=== PATIENT | female | born 1975 | race Caucasian/White ===

== ENCOUNTER 2019-01-25 21:29 | Emergency (ER) | payer BC ==
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
[2019-01-25 23:59] LABS: ABS Basophils 0 10^3/ul (0-0.2); ABS Eosinophils 0.1 10^3/ul (0-0.6); ABS Lymphocytes 1.8 10^3/ul (1.0-4.8); ABS Monocytes 0.6 10^3/ul (0-0.8); ABS Neutrophils 5.3 10^3/ul (1.5-7.7); ABS Nucleated RBC 0 10^3/ul; Eosinophil % 1.6 %; Hematocrit 37 % (35-47); Hemoglobin 12.4 g/dl (12.0-16.0); Lymphocyte % 22.8 %; Mean Corpuscular HGB Conc 33 g/dl (31-36); Mean Corpuscular Hemoglobin 29 pg (27-31); Mean Corpuscular Volume 87 fL (80-97); Mean Platelet Volume 7.9 fL (7.4-10.4); Nucleated Red Blood Cells % 0; Platelet Count 231 10^3/ul (150-450); Red Cell Distribution Width 14 % (10.5-15); White Blood Count 7.8 10^3/ul (3.5-10.8)
[2019-01-26 00:13] LABS: Albumin 3.9 g/dL (3.2-5.2); Albumin/Globulin Ratio 1.6 (1-3); BUN/Creatinine Ratio 18.6 (8-20); Calcium 9.4 mg/dL (8.6-10.3); EGFR African American 133.4 (>60); EGFR Non-African American 110.2 (>60); Globulin 2.4 g/dL (2-4); Potassium 4.1 mmol/L (3.5-5.0); Total Bilirubin 0.3 mg/dL (0.2-1.0); Total Protein 6.3 g/dL (6.4-8.9)
[2019-01-26 00:18] LABS: Influenza A Molecular NEGATIVE (Negative); Influenza B Molecular NEGATIVE (Negative)
[2019-01-26 01:06] VITALS: BP 116/77
== END 2019-01-26 01:08 | disposition home or self-care (01) ==
LOC: ED 21:29
DX: J20.9 Acute bronchitis, unspecified (principal); Z88.2 Allergy status to sulfonamides; Z88.0 Allergy status to penicillin
CPT/HCPCS: 36415; 71046; 80053; 83605; 85025; 99283

== ENCOUNTER 2019-10-28 22:22 | Emergency (ER) | payer BC ==
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
[2019-10-28] MEDS ORDERED: Ketorolac INJ* 30 MG/ML 1 ML VIAL IV PUSH ONE (23:11)
[2019-10-28] MEDS ORDERED: Morphine 4 MG/ML VIAL (1 ml) 4 MG/ML VIAL IV ONE (23:11)
[2019-10-28] MEDS ORDERED: Ondansetron INJ* 2 MG/ML VIAL IV ONE (23:11)
[2019-10-28] MEDS ORDERED: NS 0.9% 1000 ML** 2,000 ML IV ONE (23:11)
[2019-10-28] MEDS ORDERED: Morphine 4 MG/ML VIAL (1 ml) 4 MG/ML VIAL IV PRN (23:11)
[2019-10-28 23:50] LABS: ABS Lymphocytes 1.4 10^3/ul (1.0-4.8); ABS Monocytes 0.7 10^3/ul (0-0.8); ABS Neutrophils 7.3 10^3/ul (1.5-7.7); Eosinophil % 0.5 %; Hematocrit 37 % (35-47); Hemoglobin 12.5 g/dL (12.0-16.0); Lymphocyte % 14.5 %; Mean Corpuscular HGB Conc 34 g/dL (31-36); Mean Corpuscular Hemoglobin 29 pg (27-31); Mean Corpuscular Volume 87 fL (80-97); Mean Platelet Volume 8.2 fL (7.4-10.4); Platelet Count 210 10^3/uL (150-450); Red Blood Count 4.24 10^6 /uL (3.70-4.87); Red Cell Distribution Width 13 % (10-15); White Blood Count 9.5 10^3/uL (3.5-10.8)
[2019-10-28 23:51] LABS: Urine Appearance Clear; Urine Bilirubin Negative (Negative); Urine Blood Negative (Negative); Urine Color Colorless; Urine Glucose Negative (Negative); Urine Ketones Negative (Negative); Urine Nitrite Negative (Negative); Urine Protein Negative (Negative); Urine Specific Gravity 1.002 (1.010-1.030); Urine Urobilinogen Negative (Negative)
[2019-10-29 00:09] LABS: ALT 16 U/L (7-52); AST 17 U/L (13-39); Albumin/Globulin Ratio 1.8 (1-3); Alkaline Phosphatase 58 U/L (34-104); Anion Gap 6 mmol/L (2-11); BUN/Creatinine Ratio 11.8 (8-20); Blood Urea Nitrogen 8 mg/dL (6-24); C Reactive Protein 75.79 mg/L (<8.01); CO2 Carbon Dioxide 25 mmol/L (22-32); Calcium 8.9 mg/dL (8.6-10.3); Chloride 106 mmol/L (101-111); EGFR African American 112.7 (>60); EGFR Non-African American 93.2 (>60); Globulin 2.2 g/dL (2-4); Glucose 106 mg/dL (70-100); Potassium 3.7 mmol/L (3.5-5.0); Sodium 137 mmol/L (135-145); Total Protein 6.2 g/dL (6.4-8.9)
[2019-10-29 00:15] LABS: HCG Pregnancy < 0.60 mIU/mL
[2019-10-29] MEDS ORDERED: Iohexol 300* (CONTRAST) 10 ML SDV IV ONE (00:41)
[2019-10-29] MEDS ORDERED: Ciprofloxacin TAB* 500 MG PO ONE (02:45)
[2019-10-29] MEDS ORDERED: metroNIDAZOLE TAB* 250 MG PO ONE (02:46)
[2019-10-29 03:27] VITALS: BP 124/76
--- OUTSIDE RECORDS SUMMARY | 2019-11-01 15:21 | XMS REPORT | Summary of Care ---
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 0 Active ALLERGY) 10 MG Oral Cap Ibuprofen 200 MG Oral Take 600 mg by 0 Active CapIndications: mouth NEEDED. Osteoarthritis Indications: Joint Damage causing Pain and Loss of Function documented as of this encounter (statuses as of 09/19/2019) Active Problems Problem Noted Date Post concussive syndrome 09/19/2019 Primary osteoarthritis of both knees 07/12/2019 Primary osteoarthritis of left knee 06/28/2019 Primary osteoarthritis of right knee 06/28/2019 documented as of this encounter (statuses as of 09/19/2019) Social History Tobacco Use Types Packs/Day Years Used Date Never Smoker 0 Smokeless Tobacco: Never Used Alcohol Use Drinks/Week oz/Week Comments Yes occassionaly Sex Assigned at Date Recorded Not on file Job Start Date Occupation Industry Not on file Not on file Not on file Travel History Travel Start Travel End No recent travel history available. documented as of this encounter Last Filed Vital Signs Vital Sign Reading Time Taken Comments Blood Pressure 124/76 09/19/2019 4:19 PM EDT Pulse 77 09/19/2019 4:19 PM EDT Temperature 36.6 09/19/2019 4:19 PM EDT C (97.8 F) Respiratory Rate - - Oxygen Saturation 98% 09/19/2019 4:19 PM EDT Inhaled Oxygen Concentration - - Weight 78.5 kg (173 lb) 09/19/2019 4:19 PM EDT Height 172.7 cm (5' 8") 09/19/2019 4:19 PM EDT Body Mass Index 26.3 09/19/2019 4:19 PM EDT documented in this encounter Patient Instructions Patient InstructionsNoCalista rose NP - 09/19/2019 4:00 PM EDTGet fasting blood work tomorrow morning. EKG done today. Referral to cardiology - schedule this when you leave today. Record release for obgyn records (pap and mammo). If you have any concerning symptoms such as squeezing, pressure or pain in your chest; discomfort orpain in your back, neck, jaw, stomach, or arm; shortness of breath; nausea or vomiting; lightheadedness or a sudden cold sweat - please go immediately to the emergency room. Follow up depending on results of testing. documented in this encounter Progress Notes Calista Wise NP - 09/19/2019 4:00 PM EDT PATIENT: Lisset Wong : 1975 DATE OF SERVICE: 09/19/2019 CHIEF COMPLAINT: Chief Complaint Patient presents with Physical pt presents in office for CPE as well as establish care with Calista Subjective HISTORY OF PRESENT ILLNESS: Lisset Wong is a 43-y.o. female. HPI Patient is here for physical exam. Current concerns: Needs to establish with primary. Pressure in chest on and off for 2 weeks.Sometimes also in back. Having increased stress at her joband thinks maybe anxiety, having trouble sleeping. Mom and sister both have heart and anxiety hx around same age or younger. Palpations - several times a week, lasting 2-3 hours when she gets them. At least every other day. Pressure is intermittent, intense when it happens, once every other week, bad this weekend. Mild shortness of breath but relieved when sitting still. No diaphoresis. Wakingup sweaty at night though, not when awake. No neck, jaw, shoulder or arm back. Back pain between shoulder blades. No cough. Anxiety comes after the symptoms start. Pap (21-65): Goes to obgyn, last pap within last year, normal. Mammogram (40-75): Was doing every 6 months to follow a cyst and then was told not needed for another 2 years. Due next year. Does through obgyn. Family or personal history of breast or ovarian cancer: No Eye Exam: years - wears contacts. Dental Exam: one year ago, no dental problems Specialists: obgyn - [facility]. Ortho for knees - Dr. Graf. Had 3 concussions in 2012 - has postconcussive syndrome, sometimes trouble with memory. Diet: eat whatever, avoids wheat (has sensitivity). 24 Hour Diet Recall: Breakfast: Eggwhite and avocado on toast, coffee with cream, no sugar Lunch: Bowl of beans and green soup, water Dinner: Chicken and squash, water Snacks: No snack - more on weekends. 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 Past Medical History: Diagnosis Date Breast cyst 5mm cyst in R breast on U/S in 04/07 Depression 1993 dificulty with SSRIs Osteoarthritis of both knees Family History Problem Relation Age of Onset Hypertension Mother Cancer Father skin lesions removed Breast Cancer Maternal Grandmother Heart Maternal Grandmother 60 pacemaker Anesth Problems No family history Arthritis No family history Clotting Disorder No family history Diabetes No family history Heart Disease No family history Kidney Disease No family history Thyroid Disease No family history Current Outpatient Medications Medication Sig Cetirizine HCl (ZYRTEC ALLERGY) 10 MG Oral Cap Take by mouth. Ibuprofen 200 MG Oral Cap Take 600 mg by mouth NEEDED. Indications: Joint Damage causing Pain and Loss of Function No current facility-administered medications for this visit. Allergies Allergen Reactions Pcn-200 Anaphylaxis Sulfa Drugs Cross Reactors Dermatologic Reaction Social History Socioeconomic History Marital status: Single Spouse name: Not on file Number of children: Not on file Years of education: Not on file Highest education level: Not on file Occupational History Not on file Social Needs Financial resource strain: Not on file Food insecurity: Worry: Not on file Inability: Not on file Transportation needs: Medical: Not on file Non-medical: Not on file Tobacco Use Smoking status: Never Smoker Smokeless tobacco: Never Used Substance and Sexual Activity Alcohol use: Yes Comment: occassionaly Drug use: No Sexual activity: Yes Partners: Male control/protection: I.U.D. Lifestyle Physical activity: Days per week: Not on file Minutes per session: Not on file Stress: Not on file Relationships Social connections: Talks on phone: Not on file Gets together: Not on file Attends taoist service: Not on file Active member of club or organization: Not on file Attends meetings of clubs or organizations: Not on file Relationship status: Not on file Intimate partner violence: Fear of current or ex partner: Not on file Emotionally abused: Not on file Physically abused: Not on file Forced sexual activity: Not on file Other Topics Concern Not on file Social History Narrative Lives with 2 year old son. Works in [employer], lives in [place]. 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 Over the last 2 weeks, have you been feeling down, depressed, anxious, or hopeless?: 1 Over the past 2 weeks, have you felt little interest or pleasure in doing things ?: 0 REVIEW OF SYSTEMS: Review of Systems Constitutional: Positive for malaise/fatigue. Negative for chills and fever. HENT: Negative for congestion, sinus pain and sore throat. Respiratory: Positive for shortness of breath (see hpi). Negative for cough and wheezing. Cardiovascular: Positive for chest pain and palpitations. Negative for leg swelling. Gastrointestinal: Negative for abdominal pain, blood in stool, constipation, diarrhea, nausea and vomiting. Genitourinary: Negative for dysuria, frequency and urgency. Musculoskeletal: Positive for back pain (see hpi) and joint pain (knees). Negative for myalgias. Neurological: Positive for headaches (frontal). Negative for dizziness, tingling and sensory change. Psychiatric/Behavioral: Negative for depression. The patient is nervous/anxious and has insomnia. Objective PHYSICAL EXAM: VITALS: BP 124/76 (BP Location: Left arm, Patient Position: Sitting) | Pulse 77 | Temp 97.8 F(36.6 C) (Tympanic) | Ht 5' 8" (1.727 m) | Wt 173 lb (78.5 kg) | SpO2 98% | BMI 26.30 kg/m Body mass index is 26.3 kg/m. Physical Exam Vitals signs and nursing note reviewed. Constitutional: Appearance: Normal appearance. She is well-developed. HENT: Head: Normocephalic and atraumatic. Right Ear: Hearing, tympanic membrane, ear canal and external ear normal. Left Ear: Hearing, tympanic membrane, ear canal and external ear normal. Nose: Nose normal. Mouth/Throat: Lips: [place]. Mouth: Mucous membranes are moist. Pharynx: Oropharynx is clear. Uvula midline. Eyes: General: Lids are normal. Vision grossly intact. Gaze aligned appropriately. Extraocular Movements: Extraocular movements intact. Conjunctiva/sclera: Conjunctivae normal. Pupils: Pupils are equal, round, and reactive to light. Neck: Musculoskeletal: Normal range of motion and neck supple. Thyroid: No thyroid mass or thyromegaly. Vascular: No carotid bruit. Trachea: Trachea normal. Cardiovascular: Rate and Rhythm: Normal rate and regular rhythm. Frequent extrasystoles are present. Pulses: Normal pulses. Heart sounds: Normal heart sounds. No murmur. No friction rub. No gallop. Pulmonary: Effort: Pulmonary effort is normal. No respiratory distress. Breath sounds: Normal breath sounds. Abdominal: General: Abdomen is flat. Bowel sounds are normal. Palpations: Abdomen is soft. There is no hepatomegaly or splenomegaly. Tenderness: There is no tenderness. There is no right CVA tenderness or left CVA tenderness. Musculoskeletal: Normal range of motion. Right lower leg: No edema. Left lower leg: No edema. Lymphadenopathy: Head: Right side of head: No submental, submandibular, tonsillar, preauricular or posterior auricular adenopathy. Left side of head: No submental, submandibular, tonsillar, preauricular or posterior auricular adenopathy. Cervical: No cervical adenopathy. Upper Body: Right upper body: No supraclavicular adenopathy. Left upper body: No supraclavicular adenopathy. Skin: General: Skin is warm and dry. Neurological: General: No focal deficit present. Mental Status: She is alert and oriented to person, place, and time. Cranial Nerves: Cranial nerves are intact. Sensory: Sensation is intact. Deep Tendon Reflexes: Reflexes are normal and symmetric. Psychiatric: Attention and Perception: Attention and perception normal. Mood and Affect: Mood and affect normal. Speech: Speech normal. Behavior: Behavior normal. Behavior is cooperative. ASSESSMENT / IMPRESSION: ICD-9-CM ICD-10-CM 1. Physical exam V70.9 Z00.00 2. Elevated TSH 794.5 R79.89 THYROID STIMULATING HORMONE FREE T4 T3, FREE 3. Screening for lipid disorders V77.91 Z13.220 LIPID PROFILE 4. Screening for diabetes mellitus V77.1 Z13.1 COMPREHENSIVE METABOLIC PANEL 5. Palpitations 785.1 R00.2 THYROID STIMULATING HORMONE HOLTER MONITOR, GLOBAL (INCLUDES NURSES' ASSOCIATION COUNSELOR, VISUAL SCAN & INTERP) AMBULATORY 12 LEAD EKG (GLOBAL) CBC WITH DIFFERENTIAL FREE T4 T3, FREE 6. Encounter to establish care V65.8 Z76.89 Plan 1. Elevated TSH - THYROID STIMULATING HORMONE; Future - FREE T4; Future - T3, FREE; Future 2. Screening for lipid disorders - LIPID PROFILE; Future 3. Screening for diabetes mellitus - COMPREHENSIVE METABOLIC PANEL; Future 4. Palpitations - THYROID STIMULATING HORMONE; Future - COMPREHENSIVE METABOLIC PANEL; Future - HOLTER MONITOR, GLOBAL (INCLUDES NURSES' ASSOCIATION COUNSELOR, VISUAL SCAN & INTERP) - AMBULATORY 12 LEAD EKG (GLOBAL) - CBC WITH DIFFERENTIAL; Future - FREE T4; Future - T3, FREE; Future 5. Encounter to establish care 6. Physical exam Mainly focused on intermittent chest pressure and palpitations - PVC's heard on auscultation. EKG done today, holter, referral to cardiology. Indications to go to ER. Will get records from obgyn for pap and mammo. Declines flu vaccine. Fasting labs. Follow up depending on results of testing today. Author: Calista Wise NP 09/19/2019 16:57 documented in this encounter Plan of Treatment Name Type Priority Associated Diagnoses Order Schedule THYROID STIMULATING Lab Routine Elevated TSH Expected: HORMONE Palpitations 09/19/2019 (Approximate), Expires: 09/19/2020 COMPREHENSIVE METABOLIC Lab Routine Screening for diabetes Expected: PANEL mellitus 09/19/2019 Palpitations (Approximate), Expires: 09/19/2020 LIPID PROFILE Lab Routine Screening for lipid Expected: disorders 09/19/2019 (Approximate), Expires: 09/19/2020 HOLTER MONITOR, GLOBAL Procedures Routine Palpitations Ordered: (INCLUDES NURSES' ASSOCIATION COUNSELOR, 09/19/2019 VISUAL SCAN & INTERP) AMBULATORY 12 LEAD EKG EKG Routine Palpitations Ordered: (GLOBAL) 09/19/2019 CBC WITH DIFFERENTIAL Lab Routine Palpitations Expected: 09/19/2019 (Approximate), Expires: 09/19/2020 FREE T4 Lab Routine Elevated TSH Expected: Palpitations 09/19/2019 (Approximate), Expires: 09/19/2020 T3, FREE Lab Routine Elevated TSH Expected: Palpitations 09/19/2019 (Approximate), Expires: 09/19/2020 Health Maintenance Due Date Last Done Comments PAP SMEAR 1975 HIV SCREENING 1988 LIPID DISORDER SCREENING 1991 MAMMOGRAM (SCREENING) 2013 DIABETES SCREENING 06/05/2019 06/05/2018 DEPRESSION SCREENING 09/19/2020 09/19/2019 INFLUENZA VACCINE (#1) 2020 Postponed from 07/31/2019 (Patient refused) HPV IMMUNIZATION SERIES Aged Out No longer eligible based on patient's age to complete this topic MENINGOCOCCAL VACCINE IMM Aged Out No longer eligible based on patient's age to complete this topic PNEUMOCOCCAL 0-64 YRS Aged Out No longer eligible based on patient's age to complete this topic documented as of this encounter Results Not on filedocumented in this encounter Visit Diagnoses Diagnosis Physical exam - Primary Elevated TSH Other abnormal blood chemistry Screening for lipid disorders Screening for diabetes mellitus Palpitations Encounter to establish care Other reasons for seeking consultation documented in this encounter Guarantor Name Account Type Relation to Date of Phone Billing Patient Address Lisset Wong Personal/Family 1975 [facility] ZAHRAA GALVEZ (Home) [place], [place] [phone] (Work) documented as of this encounter
== END 2019-10-29 03:26 | disposition home or self-care (01) ==
LOC: ED 22:22
DX: K57.92 Diverticulitis of intestine, part unspecified, without perforation or abscess without bleeding (principal); Z88.0 Allergy status to penicillin; Z88.2 Allergy status to sulfonamides; N83.202 Unspecified ovarian cyst, left side
CPT/HCPCS: 36415; 74177; 80053; 81003; 83690; 84702; 85025; 86140; 96361; 96374; 96375; 99283; A9270-GY; J1885; J2270; J2405; Q9967